=== PATIENT | male | born 1955 | race Caucasian/White ===

== ENCOUNTER 2017-03-16 18:51 | Emergency (ER) | payer OTHER ==
[~2017-03-16] VITALS: Ht 180.3 cm; Wt 90.7 kg
[~2017-03-16 18:51] MED LIST: FLEXERIL10 MG PO; INDOMETHACIN50 MG PO; ORUDIS75 M1 PO
[2017-03-16] MEDS ORDERED: COREG PO (19:03)
[2017-03-16] MEDS ORDERED: BP MED (19:03)
[2017-03-17] MEDS ORDERED: CLINDAMYCIN HC300 MG PO (14:20)
== END 2017-03-16 20:50 | disposition home or self-care (01) ==
LOC: SED 18:51
DX: L03.114 Cellulitis of left upper limb (principal); L03.113 Cellulitis of right upper limb; S80.862A Insect bite (nonvenomous), left lower leg, initial encounter; S80.861A Insect bite (nonvenomous), right lower leg, initial encounter; I10 Essential (primary) hypertension; F17.210 Nicotine dependence, cigarettes, uncomplicated; Z88.8 Allergy status to other drugs, medicaments and biological substances; Z79.899 Other long term (current) drug therapy; W57.XXXA Bitten or stung by nonvenomous insect and other nonvenomous arthropods, initial encounter
CPT/HCPCS: 99282